=== PATIENT | male | born 2000 | race Caucasian/White ===

== ENCOUNTER 2019-03-01 00:43 | Emergency (ER) | payer BC ==
[2019-03-01] MEDS ORDERED: NORMAL SALINE 1000 ML 1,000 ML IV ONE (00:55)
[2019-03-01] MEDS ORDERED: FENTANYL CITRATE INJ/PF 100 MCG/2 ML AMPUL IV ONE (00:55)
[2019-03-01] MEDS ORDERED: DIPH/PERTUSS(ACELL)/TETANUS VAC/PF 0.5 ML SYR (>=10YO) IM ONE (00:55)
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
[2019-03-01] MEDS ORDERED: MORPHINE SULFATE 10 MG/ML INJ IV ONE (02:24)
[2019-03-01 02:25] VITALS: BP 157/110
== END 2019-03-01 02:40 | disposition short-term general hospital (02) ==
LOC: ER 00:43
DX: T23.251A Burn of second degree of right palm, initial encounter (principal); T23.211A Burn of second degree of right thumb (nail), initial encounter; T23.242A Burn of second degree of multiple left fingers (nail), including thumb, initial encounter; X10.2XXA Contact with fats and cooking oils, initial encounter; Y93.89 Activity, other specified; Y92.009 Unspecified place in unspecified non-institutional (private) residence as the place of occurrence of the external cause; T59.811A Toxic effect of smoke, accidental (unintentional), initial encounter; J70.5 Respiratory conditions due to smoke inhalation; R03.0 Elevated blood-pressure reading, without diagnosis of hypertension; Z72.0 Tobacco use; Z23 Encounter for immunization
CPT/HCPCS: 99284; 96361; 90471; 96374; 96375; 90715; J3010; J2270; J7030